=== PATIENT | female | born 1985 | race American Indian/Alaskan Native ===

== ENCOUNTER 2018-10-21 10:08 | Emergency (ER) | payer MEDICAID, OTHER ==
[2018-10-21 10:16] VITALS: BP 118/80
--- NOTE | 2018-10-21 10:47 | Emergency Department Report ---
Abscess Boil HPI - HPI Chief Complaint: Skin/Abscess/Foreign Body Stated Complaint: BOIL ON FACE Time Seen by Provider: 10/21/18 10:35 Duration: 1 Week Location: Head History: Yes Pain, Yes Purulent Drainage, Yes Insect Bite, No Fever, No Numbness, No Foreign Body, No Previous History Home Medications: Home Medications Medication Instructions Recorded Confirmed Last Taken Vit-Fe Fumar-FA [ 1 tab PO QDAY 09/04/16 09/04/16 08/25/16 Vitamin] Previous Rx's Medication Instructions Recorded Last Taken Type Ferrous Sulfate [Feosol 325 MG tab] 325 mg PO BID #60 tablet 09/02/13 09/01/16 Rx Acetaminophen/Codeine [Tylenol #3] 1 tab PO Q6H PRN #20 tab 07/06/15 Unknown Rx Butalb/Acetaminophen/Caffeine 1 cap PO Q6HR PRN #10 cap 06/03/18 Unknown Rx [Fioricet 50-300-40 mg CAP] Ibuprofen 800 mg PO Q6H PRN #10 tablet 06/03/18 Unknown Rx Promethazine [Phenergan TAB] 25 mg PO Q6HR PRN #10 tab 06/03/18 Unknown Rx Allergies/Adverse Reactions: Allergies Allergy/AdvReac Type Severity Reaction Status Date / Time No Known Allergies Allergy Verified 08/28/13 16:46 ED Review of Systems ROS: Stated complaint: BOIL ON FACE Other details as noted in HPI Comment: All other systems reviewed and negative ENT: denies: throat pain Cardiovascular: denies: chest pain, palpitations Gastrointestinal: denies: abdominal pain, nausea Neurological: denies: headache, weakness, numbness, paresthesias, confusion ED Past Medical Hx - Past Medical History Previous Medical History?: Yes Hx Hypertension: No Hx Congestive Heart Failure: No Hx Diabetes: No Hx Deep Vein Thrombosis: No Hx Renal Disease: No Hx Sickle Cell Disease: No Hx Headaches / Migraines: Yes Hx Seizures: No Hx Asthma: No Hx COPD: No Hx HIV: No Additional medical history: Ectopic - Surgical History Past Surgical History?: Yes Additional Surgical History: collapsed lung on right side, ectopic 2012 - Social History Smoking Status: Current Some Day Smoker Substance Use Type: None - Medications Home Medications: Home Medications Medication Instructions Recorded Confirmed Last Taken Type Ferrous Sulfate [Feosol 325 MG tab] 325 mg PO BID #60 tablet 09/02/13 09/04/16 09/01/16 Rx Acetaminophen/Codeine [Tylenol #3] 1 tab PO Q6H PRN #20 tab 07/06/15 09/04/16 Unknown Rx Vit-Fe Fumar-FA [ 1 tab PO QDAY 09/04/16 09/04/16 08/25/16 History Vitamin] Butalb/Acetaminophen/Caffeine 1 cap PO Q6HR PRN #10 cap 06/03/18 Unknown Rx [Fioricet 50-300-40 mg CAP] Ibuprofen 800 mg PO Q6H PRN #10 tablet 06/03/18 Unknown Rx Promethazine [Phenergan TAB] 25 mg PO Q6HR PRN #10 tab 06/03/18 Unknown Rx ED Abscess Boil Physical Exam - Exam General: Vital signs noted. No distress. Alert and acting appropriately. Size: 3 cm Exam: Yes Tenderness, Yes Fluctuance, Yes Surrounding Cellulites/Erythema, Yes Normal Neurologic Exam, Yes Normal Circulation, No Lymphangitis, No Crepitation, No Heart Murmur I & D Note - I & D Note I & D Note: Under aseptic Condition. Patient area anesthetized with 2% lidocaine. Using #11blade, moderate amount of purulent fluids released. No complication. ED Course Vital Signs 10/21/18 10:12 Temperature 98.9 F Pulse Rate 98 H Respiratory 16 Rate Blood Pressure 118/80 O2 Sat by Pulse 100 Oximetry Critical care attestation.: If time is entered above; I have spent that time in minutes in the direct care of this critically ill patient, excluding procedure time. ED Disposition Clinical Impression: Abscess of face, Encounter for incision and drainage procedure Disposition: - TO HOME OR SELFCARE Is pt being admited?: No Condition: Stable Instructions: Abscess Incision and Drainage (ED) Referrals: [facility] [Provider Group] - 3-5 Days
[2018-10-21] MEDS ORDERED: XYLOCAINE 2% INFILTRATI ONE (10:48)
== END 2018-10-21 11:08 | disposition home or self-care (01) ==
LOC: ED 10:08
DX: L02.01 Cutaneous abscess of face (principal); G43.909 Migraine, unspecified, not intractable, without status migrainosus; F17.200 Nicotine dependence, unspecified, uncomplicated

== ENCOUNTER 2021-06-06 08:14 | Outpatient (CLI) | payer MEDICAID, OTHER ==
[2021-06-06 08:49] VITALS: BP 101/71
== END 2021-06-06 11:30 | disposition home or self-care (01) ==
LOC: TRG 08:14 → APU 08:15 → TRG 11:30
PROVIDERS: ATTEND Obstetrics & Gynecology
DX: O09.893 Supervision of other high risk pregnancies, third trimester (principal); Z3A.39 39 weeks gestation of pregnancy
CPT/HCPCS: 59025